=== PATIENT | male | born 1935 | race Caucasian/White ===

== ENCOUNTER 2018-03-04 21:20 | Observation (INO) | payer OTHER ==
[2018-03-04] MEDS ORDERED: METOPROLOL TAR 50 MG TAB ONE (21:52)
[2018-03-04] MEDS ORDERED: ASPIRIN 81 MG CHEWABLE TABLET ONE (21:52)
[2018-03-04] MEDS ORDERED: METOPROLOL TARTRATE 5 MG/5 ML INJ IV ONE ×3 (21:52→22:09)
[2018-03-04] MEDS ORDERED: NA CHLORIDE 0.9% 1,000 ML ONE (21:53)
[2018-03-04] MEDS ORDERED: ENOXAPARIN 80 MG/0.8 ML SQ ONE (21:53)
[2018-03-04] MEDS ORDERED: DIGOXIN 0.25 MG TABLET ONE (22:01)
[2018-03-04] MEDS ORDERED: FAMOTIDINE 20 MG/2 ML VIAL IV ONE (22:02)
[2018-03-04 22:07] LABS: Absolute Lymphocytes (CBC) 1.9 K/uL (0.7-4.9); Absolute Monocytes 0.7 K/uL (0.1-1.3); Absolute Neutrophil 4.6 K/uL (1.8-8.0); Basophils % 0.6 % (0-1.3); Hematocrit 43.9 % (39.6-49.0); MCV 96.3 fL (80-100); MPV 8.6 fL (7.6-11.3); Monocytes % 10.1 % (3.3-12.3); Potassium 4.1 mEq/L (3.6-5.0); RBC Red Blood Cell Count 4.56 M/uL (4.33-5.43)
[2018-03-04] MEDS ORDERED: DIGOXIN 0.25 MG/ML AMP ONE (22:08)
[2018-03-04 22:20] LABS: CKMB Creatine Kinase MB 2.2 ng/ml (0.3-4.0)
--- NOTE | 2018-03-04 22:42 | ER ---
Nurse's Notes [facility] Name: Adarsh Frederick Age: 82 yrs Sex: Male : 1935 Arrival Date: 03/04/2018 Time: 21:21 Bed 3 Private MD: Diagnosis: Atrial fibrillation and flutter;Other chest pain;Type 2 diabetes mellitus Presentation: 03/04 21:25 Presenting complaint: Patient states: that he started to have chest pain at approx 1930 fc along with shortness of breath. Pain radiates to left arm and left jaw. Denies any nausea or vomiting. Transition of care: patient was not received from another setting of care. Onset of symptoms was March 04, 2018 at 19:30. Care prior to arrival: Medication(s) given: Nitroglycerin, 0.4 mg SL x 1. 21:25 Method Of Arrival: Wheelchair 21:25 Acuity: MELLO 2 fc Historical: - Allergies: :56 No Known Allergies; fc - Home Meds: 21:56 aspirin 325 mg Oral tab 1 tab once daily [Active]; glipizide 5 mg Oral tr24 1 tab twice fc a day [Active]; donepezil 10 mg oral tab .5 tab once daily [Active]; atenolol 25 mg Oral tab 1 tab once daily [Active]; sertraline 25 mg oral tab 1 tab once daily [Active]; clopidogrel 75 mg oral tab 1 tab once daily [Active]; Co Q-10 oral oral daily [Active]; primidone 50 mg Oral tab nightly [Active]; clonazepam 0.5 mg Oral tab 1 tab as needed [Active]; tramadol 50 mg Oral tab 1 tab twice a day [Active]; atorvastatin 40 mg oral tab 1 tab nightly [Active]; omeprazole 40 mg Oral cpDR 1 cap nightly [Active]; - PMHx: 21:56 Myocardial infarction; CAD; Diabetes - NIDDM; High Cholesterol; Dementia; Depression; fc - PSHx: 21:56 CABG; Heart stents; Hernia repair; fc - Immunization history:: Last tetanus immunization: unknown. - Social history:: Smoking status: Patient/guardian denies using tobacco, the patient reports quitting approximately 20 years ago. - Family history:: not pertinent. Screenin:25 Abuse screen: Denies threats or abuse. Nutritional screening: No deficits noted. fc Tuberculosis screening: No symptoms or risk factors identified. Fall Risk None identified. Assessment: 21:30 General: Appears uncomfortable, Behavior is calm, cooperative, appropriate for age. bp Pain: Complains of pain in mid chest Pain does not radiate. Pain currently is 7 out of 10 on a pain scale. Quality of pain is described as aching, Pain began gradually. Neuro: Level of Consciousness is awake, alert, obeys commands, Oriented to person, place, time, hx of dementia. Speech is normal, Facial symmetry appears normal, Pupils are PERRLA, Intact. Cardiovascular: Reports chest pain, palpitations, Denies nausea, palpitations, shortness of breath, syncope, Heart tones S1 S2 present Capillary refill < 3 seconds Patient's skin is warm and dry. Pulses are all present. Rhythm is w/ RVR. Respiratory: Airway is patent Trachea midline Respiratory effort is even, unlabored, Respiratory pattern is regular, symmetrical, Breath sounds are clear bilaterally. GI: No deficits noted. No signs and/or symptoms were reported involving the gastrointestinal system. : No deficits noted. No signs and/or symptoms were reported regarding the genitourinary system. EENT: No deficits noted. No signs and/or symptoms were reported regarding the EENT system. Derm: No deficits noted. No signs and/or symptoms reported regarding the dermatologic system. Musculoskeletal: Circulation, motion, and sensation intact. Capillary refill < 3 seconds, Range of motion: intact in all extremities. 22:30 Reassessment: Patient appears in no apparent distress at this time. Patient and/or bp family updated on plan of care and expected duration. Pain level reassessed. Patient is alert, oriented x 3, equal unlabored respirations, skin warm/dry/pink. Patient states symptoms have improved. 23:30 Reassessment: Patient appears in no apparent distress at this time. No changes from bp previously documented assessment. Patient and/or family updated on plan of care and expected duration. Pain level reassessed. Patient is alert, oriented x 3, equal unlabored respirations, skin warm/dry/pink. 03/05 00:30 Reassessment: Patient appears in no apparent distress at this time. No changes from bp previously documented assessment. Patient and/or family updated on plan of care and expected duration. Pain level reassessed. Patient is alert, oriented x 3, equal unlabored respirations, skin warm/dry/pink. Patient alert and oriented to person, place, situation, does have some intermittent confusion due to hx of dementia. No chest pain noted at this time. No signs of resp distress. Patient now in sinus rhythm, another EKG done. Vital Signs: 03/04 21:25 BP 152 / 87; Pulse 106; Resp 20; Temp 98.(O); Pulse Ox 98% on R/A; Weight 70.76 kg (R); fc Height 5 ft. 11 in. (180.34 cm) (R); Pain 3/10; 21:45 BP 140 / 89; Pulse 112; Resp 18; Pulse Ox 97% on R/A; Pain 0/10; bp 21:56 BP 132 / 92; Resp 18; Pulse Ox 97% on R/A; Pain 0/10; bp 22:00 BP 111 / 94; Pulse 104; Resp 18; Pulse Ox 97% on R/A; Pain 0/10; bp 22:09 BP 124 / 91; Pulse 95; Resp 18; Pulse Ox 96% ; Pain 0/10; bp 22:15 BP 145 / 128; Pulse 118; Resp 18; Pulse Ox 96% on R/A; bp 22:30 BP 152 / 92; Pulse 80; Resp 17; Pulse Ox 97% on R/A; Pain 0/10; bp 22:45 BP 143 / 88; Pulse 83; Resp 18; Pulse Ox 96% on R/A; bp 23:00 BP 143 / 97; Pulse 78; Pulse Ox 100% on R/A; bp 23:15 BP 154 / 95; Pulse 80; Pulse Ox 100% on R/A; bp 23:30 BP 153 / 92; Pulse 79; Pulse Ox 96% on R/A; bp 23:45 BP 151 / 95; Pulse 78; Pulse Ox 97% on R/A; bp 0412 00:00 BP 150 / 90; Pulse 77; Pulse Ox 98% on R/A; bp 00:15 BP 162 / 95; Pulse 76; Pulse Ox 98% on R/A; bp 03/04 21:25 Body Mass Index 21.76 (70.76 kg, 180.34 cm) ED Course: 03/04 21:21 Patient arrived in ED. as 21:25 Arm band placed on Patient placed in an exam room, on a stretcher, on teletypesetter monitor, fc on pulse oximetry. 21:25 Patient has correct armband on for positive identification. Placed in gown. Bed in low fc position. Call light in reach. quality assurance monitor body on. Pulse ox on. NIBP on. 21:25 No provider procedures requiring assistance completed. Patient maintains SpO2 fc saturation greater than 95% on room air. 21:29 Kenan Fernandes, RN is Primary Nurse. bp 21:38 Triage completed. fc 21:38 Soy Winchester MD is Attending Physician. clary 21:56 X-ray completed. Portable x-ray completed in exam room. Patient tolerated procedure ml well. 21:57 XRAY Chest (1 view) In Process Unspecified. EDMS 22:40 Sergo Gray MD is Hospitalizing Provider. clary 03/05 00:45 Patient admitted, IV remains in place. intact. bs1 Administered Medications: Discontinued: NS 0.9% 1000 ml IV at 125 ml/hr continuous 03/04 21:54 Drug: Aspirin 162 mg Route: PO; bs1 03/05 00:51 Follow up: Response: No adverse reaction [facility] 03/04 21:54 Drug: Lopressor 5 mg Route: IVP; Site: left antecubital; bs1 21:54 Drug: Lopressor (metoprolol TARTRATE) 50 mg Route: PO; bs 03/05 00:50 Follow up: Response: No adverse reaction [facility] 03/04 21:55 Drug: NS 0.9% 1000 ml Route: IV; Rate: 125 ml/hr; Site: left antecubital; bs1 03/05 00:52 Follow up: IV Status: Order to discontinue infusion; IV Intake: 450ml bs1 00:54 Follow up: IV Status: Infusion continued upon admission [facility] 03/04 21:58 Drug: Lovenox 1 mg/kg Route: Sub-Q; Site: left lower abdomen; bs 03/05 00:51 Follow up: Response: No adverse reaction [facility] 03/04 22:02 Drug: Lopressor 5 mg Route: IVP; Site: left antecubital; bs1 22:02 Drug: Pepcid 20 mg Route: IVP; Site: left antecubital; bs 03/05 00:48 Follow up: Response: No adverse reaction [facility] 03/04 22:03 Drug: Digoxin 0.5 mg Route: IVP; Site: left antecubital; bs1 03/05 00:48 Follow up: Response: No adverse reaction bs1 03/04 22:10 Drug: Lopressor 5 mg Route: IVP; Site: left antecubital; bs1 03/05 00:50 Follow up: Response: No adverse reaction bs1 Intake: 00:52 IV: 450ml; Total: 450ml. bs1 Outcome: 03/04 22:40 Decision to Hospitalize by Provider. [facility] 03/05 00:45 Instructed on the need for admit. bs1 00:45 Admitted to Tele accompanied by tech, via wheelchair, room 419, with chart, Report bs1 called to DAVID Downs, powerhouse mechanic supervisor Shawna Called powerhouse mechanic supervisor to give report 00:47 Condition: stable bp 01:35 Patient left the ED. bs1 Signatures: Dispatcher [employer] EDSoy Kunz MD MD cha Chretien, Felicia, RN RN Brandi Jean Melissa ml Peltier, Brian, RN RN bp Salazar, Brittany, RN RN bs1
--- NOTE | 2018-03-04 22:42 | EDPHYS ---
Physician Documentation [facility] Name: Adarsh Frederick Age: 82 yrs Sex: Male : 1935 Arrival Date: 03/04/2018 Time: 21:21 Bed 3 Private MD: ED Physician Soy Winchester HPI: 03/04 21:52 This 82 yrs old Male presents to ER via Wheelchair with complaints of Chest clary Pain. 21:52 The patient or guardian reports chest pain that is located primarily in the substernal clary area, anterior chest wall. Onset: just prior to arrival. The pain does not radiate. Associated signs and symptoms: Pertinent positives: dizziness, lightheadedness. The chest pain is described as a heaviness. Modifying factors: The symptoms are alleviated by nothing. the symptoms are aggravated by nothing. Severity of pain: At its worst the pain was mild in the emergency department the pain is unchanged. The patient has not experienced similar symptoms in the past. Historical: - Allergies: 21:56 No Known Allergies; fc - Home Meds: 21:56 aspirin 325 mg Oral tab 1 tab once daily [Active]; glipizide 5 mg Oral tr24 1 tab twice fc a day [Active]; donepezil 10 mg oral tab .5 tab once daily [Active]; atenolol 25 mg Oral tab 1 tab once daily [Active]; sertraline 25 mg oral tab 1 tab once daily [Active]; clopidogrel 75 mg oral tab 1 tab once daily [Active]; Co Q-10 oral oral daily [Active]; primidone 50 mg Oral tab nightly [Active]; clonazepam 0.5 mg Oral tab 1 tab as needed [Active]; tramadol 50 mg Oral tab 1 tab twice a day [Active]; atorvastatin 40 mg oral tab 1 tab nightly [Active]; omeprazole 40 mg Oral cpDR 1 cap nightly [Active]; - PMHx: 21:56 Myocardial infarction; CAD; Diabetes - NIDDM; High Cholesterol; Dementia; Depression; fc - PSHx: 21:56 CABG; Heart stents; Hernia repair; fc - Immunization history:: Last tetanus immunization: unknown. - Social history:: Smoking status: Patient/guardian denies using tobacco, the patient reports quitting approximately 20 years ago. - Family history:: not pertinent. ROS: 21:52 Constitutional: Negative for fever, chills, and weight loss, Eyes: Negative for injury, clary pain, redness, and discharge, ENT: Negative for injury, pain, and discharge, Neck: Negative for injury, pain, and swelling, Respiratory: Negative for shortness of breath, cough, wheezing, and pleuritic chest pain, Abdomen/GI: Negative for abdominal pain, nausea, vomiting, diarrhea, and constipation, Back: Negative for injury and pain, : Negative for injury, bleeding, discharge, and swelling, MS/Extremity: Negative for injury and deformity, Skin: Negative for injury, rash, and discoloration, Neuro: Negative for headache, weakness, numbness, tingling, and seizure. 21:52 Cardiovascular: Positive for chest pain. Exam: 21:52 Constitutional: This is a well developed, well nourished patient who is awake, alert, clary and in no acute distress. Head/Face: Normocephalic, atraumatic. Eyes: Pupils equal round and reactive to light, extra-ocular motions intact. Lids and lashes normal. Conjunctiva and sclera are non-icteric and not injected. Cornea within normal limits. Periorbital areas with no swelling, redness, or edema. ENT: Nares patent. No nasal discharge, no septal abnormalities noted. Tympanic membranes are normal and external auditory canals are clear. Oropharynx with no redness, swelling, or masses, exudates, or evidence of obstruction, uvula midline. Mucous membranes moist. Neck: Trachea midline, no thyromegaly or masses palpated, and no cervical lymphadenopathy. Supple, full range of motion without nuchal rigidity, or vertebral point tenderness. No Meningismus. Chest/axilla: Normal chest wall appearance and motion. Nontender with no deformity. No lesions are appreciated. Respiratory: Lungs have equal breath sounds bilaterally, clear to auscultation and percussion. No rales, rhonchi or wheezes noted. No increased work of breathing, no retractions or nasal flaring. Abdomen/GI: Soft, non-tender, with normal bowel sounds. No distension or tympany. No guarding or rebound. No evidence of tenderness throughout. Back: No spinal tenderness. No costovertebral tenderness. Full range of motion. Male : Normal genitalia with no discharge or lesions. Skin: Warm, dry with normal turgor. Normal color with no rashes, no lesions, and no evidence of cellulitis. MS/ Extremity: Pulses equal, no cyanosis. Neurovascular intact. Full, normal range of motion. Neuro: Awake and alert, GCS 15, oriented to person, place, time, and situation. Cranial nerves II-XII grossly intact. Motor strength 5/5 in all extremities. Sensory grossly intact. Cerebellar exam normal. Normal gait. Psych: Awake, alert, with orientation to person, place and time. Behavior, mood, and affect are within normal limits. 21:52 Cardiovascular: Rate: tachycardic, Rhythm: irregularly irregular, Pulses: Pulses are 4+ in bilateral radial, brachial, femoral, popliteal, posterior tibial and and dorsalis pedis arteries.. Heart sounds: normal, Edema: is not appreciated, JVD: is not appreciated. Vital Signs: 21:25 BP 152 / 87; Pulse 106; Resp 20; Temp 98.(O); Pulse Ox 98% on R/A; Weight 70.76 kg (R); fc Height 5 ft. 11 in. (180.34 cm) (R); Pain 3/10; 21:45 BP 140 / 89; Pulse 112; Resp 18; Pulse Ox 97% on R/A; Pain 0/10; bp 21:56 BP 132 / 92; Resp 18; Pulse Ox 97% on R/A; Pain 0/10; bp 22:00 BP 111 / 94; Pulse 104; Resp 18; Pulse Ox 97% on R/A; Pain 0/10; bp 22:09 BP 124 / 91; Pulse 95; Resp 18; Pulse Ox 96% ; Pain 0/10; bp 22:15 BP 145 / 128; Pulse 118; Resp 18; Pulse Ox 96% on R/A; bp 22:30 BP 152 / 92; Pulse 80; Resp 17; Pulse Ox 97% on R/A; Pain 0/10; bp 22:45 BP 143 / 88; Pulse 83; Resp 18; Pulse Ox 96% on R/A; bp 23:00 BP 143 / 97; Pulse 78; Pulse Ox 100% on R/A; bp 23:15 BP 154 / 95; Pulse 80; Pulse Ox 100% on R/A; bp 23:30 BP 153 / 92; Pulse 79; Pulse Ox 96% on R/A; bp 23:45 BP 151 / 95; Pulse 78; Pulse Ox 97% on R/A; bp 03/05 00:00 BP 150 / 90; Pulse 77; Pulse Ox 98% on R/A; bp 00:15 BP 162 / 95; Pulse 76; Pulse Ox 98% on R/A; bp 03/04 21:25 Body Mass Index 21.76 (70.76 kg, 180.34 cm) fc MDM: 03/04 21:38 Patient medically screened. [facility] 21:52 Data reviewed: vital signs, nurses notes, lab test result(s), EKG, radiologic studies, clary plain films. 03/04 21:40 Order name: Basic Metabolic Panel [facility] 03/04 21:40 Order name: BNP; Complete Time: 22:38 [facility] 03/04 21:40 Order name: CBC with Diff [facility] 03/04 21:40 Order name: Ckmb [facility] 03/04 21:40 Order name: CPK [facility] 03/04 21:40 Order name: LFT's [facility] 03/04 21:40 Order name: Magnesium [facility] 03/04 21:40 Order name: PT-INR [facility] 03/04 21:40 Order name: Ptt, Activated [facility] 03/04 21:40 Order name: Troponin (emerg Dept Use Only); Complete Time: 22:38 [facility] 03/04 21:40 Order name: Lipase [facility] 03/04 21:40 Order name: TSH [facility] 03/04 21:40 Order name: Urine Culture [facility] 03/04 23:08 Order name: Troponin I [facility] 03/04 21:40 Order name: XRAY Chest (1 view) [facility] 03/04 21:40 Order name: EKG; Complete Time: 21:41 [facility] 03/04 21:40 Order name: Cardiac monitoring; Complete Time: 21:46 [facility] 03/04 21:40 Order name: EKG - Nurse/Tech; Complete Time: 21:46 [facility] 03/04 22:44 Order name: CONS Physician Consult [facility] 03/04 22:44 Order name: Echo with Doppler [facility] 03/04 23:08 Order name: Heart Healthy [facility] 03/04 23:08 Order name: Troponin I [facility] 03/04 23:08 Order name: Troponin I [facility] 03/04 21:40 Order name: IV Saline Lock; Complete Time: 21:46 [facility] 03/04 21:40 Order name: Labs collected and sent; Complete Time: 21:46 [facility] 03/04 21:40 Order name: O2 Per Protocol; Complete Time: 21:46 [facility] 03/04 21:40 Order name: O2 Sat Monitoring; Complete Time: 21:46 [facility] 03/04 21:40 Order name: Urine Dipstick-Ancillary (obtain specimen); Complete Time: 00:52 [facility] Administered Medications: Discontinued: NS 0.9% 1000 ml IV at 125 ml/hr continuous 21:54 Drug: Aspirin 162 mg Route: PO; bs1 03/05 00:51 Follow up: Response: No adverse reaction bs1 03/04 21:54 Drug: Lopressor 5 mg Route: IVP; Site: left antecubital; bs1 21:54 Drug: Lopressor (metoprolol TARTRATE) 50 mg Route: PO; bs1 03/05 00:50 Follow up: Response: No adverse reaction [facility] 03/04 21:55 Drug: NS 0.9% 1000 ml Route: IV; Rate: 125 ml/hr; Site: left antecubital; bs1 03/05 00:52 Follow up: IV Status: Order to discontinue infusion; IV Intake: 450ml bs1 00:54 Follow up: IV Status: Infusion continued upon admission bs1 03/04 21:58 Drug: Lovenox 1 mg/kg Route: Sub-Q; Site: left lower abdomen; bs1 03/05 00:51 Follow up: Response: No adverse reaction 1 03/04 22:02 Drug: Lopressor 5 mg Route: IVP; Site: left antecubital; bs1 22:02 Drug: Pepcid 20 mg Route: IVP; Site: left antecubital; bs1 03/05 00:48 Follow up: Response: No adverse reaction 1 03/04 22:03 Drug: Digoxin 0.5 mg Route: IVP; Site: left antecubital; bs1 03/05 00:48 Follow up: Response: No adverse reaction [facility] 03/04 22:10 Drug: Lopressor 5 mg Route: IVP; Site: left antecubital; bs1 03/05 00:50 Follow up: Response: No adverse reaction [facility] Disposition: 03/04/18 22:40 Hospitalization ordered by Sergo Gray for Observation. Preliminary diagnosis are Atrial fibrillation and flutter, Other chest pain, Type 2 diabetes mellitus. - Bed requested for Telemetry/MedSurg (observation). - Status is Observation. bs1 - Condition is Stable. - Problem is new. - Symptoms have improved. UTI on Admission? No Signatures: Dispatcher [employer] EDMS Shawna Freedman RN RN Soy Moore MD MD cha Chretien, Felicia, RN RN Sheryl Cuevas RN RN bs1
[2018-03-04 22:44] LABS: Protime INR 0.91
[2018-03-04 22:52] LABS: Thyroid Stimulating Hormone 3.86 uIU/mL (0.34-5.60)
[2018-03-04 22:59] LABS: Albumin 3.6 g/dL (3.2-5.5); Bilirubin Direct 0.3 mg/dL (0-0.2); Bilirubin Total 0.7 mg/dL (0.3-1.2); Magnesium 1.9 mg/dL (1.8-2.5); Protein, Total 6.7 g/dL (6.0-8.3)
[2018-03-04 23:03] LABS: MCH 32.9 pg (27.0-35.0)
[2018-03-04] MEDS ORDERED: METOPROLOL TARTRATE 5 MG/5 ML INJ IV PRN (23:06)
[2018-03-04] MEDS ORDERED: ACETAMINOPHEN 500 MG TAB PO PRN (23:06)
[2018-03-04] MEDS ORDERED: ALPRAZOLAM 0.25 MG TABLET PO PRN (23:06)
[2018-03-05 02:10] VITALS: O2SAT 98
[2018-03-05 02:18] VITALS: BMI 20.8
[2018-03-05] MEDS ORDERED: clonazePAM 0.5 MG TAB PO PRN (06:56)
[2018-03-05] MEDS ORDERED: TRAMADOL HCL 50 MG TAB PO PRN (06:56)
--- NOTE | 2018-03-05 07:01 | EKG ---
Test Date: 2018-03-04 Test Time: 21:34:19 Educational Advisor: LAURIE MEASUREMENT RESULTS: Intervals: Rate: 153 [place]: QRSD: 86 QT: 314 QTc: 501 [place]: P: FL: QRS: 43 T: 113 INTERPRETIVE STATEMENTS: Atrial fibrillation with rapid ventricular response Possible Inferior infarct, age undetermined ST & T wave abnormality, consider lateral ischemia Abnormal ECG No previous ECG available for comparison Electronically Signed On 03-05-18 07:01:26 CDT by Min Flores
--- NOTE | 2018-03-05 07:06 | P.HP ---
Certification for Inpatient Patient admitted to: Observation With expected LOS: <2 Midnights Patient will require the following post-hospital care: None Practitioner: I am a practitioner with admitting privileges, knowledge of patient current condition, hospital course, and medical plan of care. Services: Services provided to patient in accordance with Admission requirements found in Title 42 Section 412.3 of the Code of Federal Regulations Patient History Date of Service: 03/04/18 Reason for admission: Chest pain rule out acute coronary syndrome History of Present Illness: Patient is an 82-year-old who is admitted to the hospital with chest pain. Patient has a history of CAD. Patient follows with a stock raiser from [place]. Patient has had recent workup with no significant abnormalities. Patient has been having chest pain which is worsened with exertion. However, his chest pain has resolved. Patient will be admitted to the hospital for observation to be ruled out for acute coronary syndrome and for further evaluation. Allergies No Known Allergies Allergy (Verified 03/05/18 01:35) Home Medications: Aspirin 325 mg PO DAILY 03/05/18 Atenolol [Tenormin] 25 mg PO DAILY 03/05/18 Atorvastatin Calcium [Lipitor] 40 mg PO BEDTIME 03/05/18 Clonazepam 0.5 mg PO PRN PRN 03/05/18 Clopidogrel Bisulfate [Plavix*] 75 mg PO DAILY 03/05/18 Donepezil [Aricept*] 5 mg PO DAILY 03/05/18 Glipizide [Glucotrol] 5 mg PO BID 03/05/18 Omeprazole 20 mg PO DAILY 03/05/18 Primidone [Mysoline] 50 mg PO DAILY 03/05/18 Sertraline [Zoloft*] 25 mg PO DAILY 03/05/18 Tamsulosin [Flomax*] 0.4 mg PO DAILY 03/05/18 Tramadol HCl [Ultram] 50 mg PO BID PRN 03/05/18 Ubidecarenone [Co Q-10] 10 mg PO DAILY 03/05/18 - Past Medical/Surgical History Has patient received pneumonia vaccine in the past: Yes Diabetic: Yes -: DM -: High Cholesterol -: RI -: CAD -: Dementia -: Depression -: CABG -: Heart stents -: Hernia repair - Family History Father Medical History: Heart disease Mother Medical History: Hypertension, Diabetes - Social History Smoking Status: Former smoker Alcohol use: Yes CD- Drugs: No Caffeine use: Yes Place of Residence: Home Review of Systems 10-point ROS is otherwise unremarkable Physical Examination - Vital Signs Temperature: 98.3 F Blood Pressure: 140/88 Pulse: 123 Respirations: 16 Pulse Ox (%): 97 - Physical Exam General: Alert, In no apparent distress, Oriented x3 HEENT: Atraumatic, PERRLA, Mucous membr. moist/pink, EOMI, Sclerae nonicteric Neck: Supple, 2+ carotid pulse no bruit, No LAD, Without JVD or thyroid abnormality Respiratory: Clear to auscultation bilaterally, Normal air movement Cardiovascular: Regular rate/rhythm, Normal S1 S2, No murmurs Gastrointestinal: Normal bowel sounds, Soft and benign, Non-distended, No tenderness, No rebound, No guarding Musculoskeletal: No clubbing, No swelling, No tenderness Integumentary: No rashes Neurological: Normal gait, Normal speech, Normal strength at 5/5 x4 extr, Normal tone, Sensation intact, Cranial nerves 3-12 intact, Normal affect Lymphatics: No axilla or inguinal lymphadenopathy - Studies Laboratory Data (last 24 hrs) 03/04/18 21:40: PT 10.7, INR 0.91, APTT 26.3 03/04/18 21:40: WBC 7.3, Hgb 15.0, Hct 43.9, Plt Count 164 03/04/18 21:40: B-Natriuretic Peptide 86 03/04/18 21:40: Sodium 137, Potassium 4.1, BUN 23 H, Creatinine 1.58 H, Glucose 193 H, Magnesium 1.9, Total Bilirubin 0.7, AST 34, ALT 16, Alkaline Phosphatase 47, Lipase 50 Assessment & Plan - Problems (Diagnosis) (1) Chest pain, rule out acute myocardial infarction Current Visit: Yes Status: Acute (2) CAD (coronary artery disease) Current Visit: Yes Status: Acute (3) HTN (hypertension) Current Visit: Yes Status: Acute (4) DM type 2 (diabetes mellitus, type 2) Current Visit: Yes Status: Acute (5) Depression Current Visit: Yes Status: Acute (6) Alzheimer's dementia Current Visit: Yes Status: Acute - Plan 1. Serial troponins and EKG 2. Cardiology consultation 3. Echocardiogram and further intervention as recommended by Cardiology 4. Anti-platelet therapy, anti coagulation, beta-josephine, statin, and O2 as needed 5. IV morphine for pain 6. Nitro p.r.n. Discharge Plan: Home Plan to discharge in: 24 Hours - Advance Directives Does patient have a Living Will: No Does patient have a Durable POA for Healthcare: No - Code Status/Comfort Care Code Status Assessed: Yes Code Status: Full Code Critical Care: No Time Spent Managing PTS Care (In Minutes): 50
--- NOTE | 2018-03-05 08:08 | RAD REPORT ---
EXAM DESCRIPTION: Jhonathan Single View03/04/2018 9:58 pm CLINICAL HISTORY: Chest pain COMPARISON: none FINDINGS: Mild bilateral interstitial lung opacities are suspected. The heart is enlarged. Post surg ical chain IMPRESSION: Mild bilateral interstitial lung opacities may represent atypical pneumonia, pneumonitis or interstitial pulmonary edema
[2018-03-05] MEDS: PRIMIDONE 50 MG TAB PO SCH ×3 (08:41→09:29)
[2018-03-05] MEDS ORDERED: SERTRALINE HCL 50 MG TAB PO SCH (09:00)
[2018-03-05] MEDS ORDERED: TAMSULOSIN 0.4 MG SR CAP PO SCH (09:00)
[2018-03-05] MEDS ORDERED: CLOPIDOGREL 75 MG TABLET PO SCH (09:00)
[2018-03-05] MEDS ORDERED: METOPROLOL TAR 50 MG TAB PO SCH (09:00)
[2018-03-05] MEDS ORDERED: DONEPEZIL HCL 5 MG TAB PO SCH (09:00)
[2018-03-05] MEDS ORDERED: glipiZIDE 5 MG TAB PO SCH (09:00)
[2018-03-05] MEDS ORDERED: ASPIRIN 325 MG TAB PO SCH (09:00)
[2018-03-05] MEDS ORDERED: UBIDECARENONE 10 MG PO SCH (09:00)
[2018-03-05] MEDS ORDERED: ASPIRIN EC 81 MG TAB PO SCH (09:00)
[2018-03-05 11:27] VITALS: BP 140/72; TEMP 97.4
--- NOTE | 2018-03-05 12:10 | ECHO ---
HEIGHT: 5 ft 11 in WEIGHT: 149 lb 8 oz DATE OF STUDY: 03/05/[address]: Soy Winchester MD 2-DIMENSIONAL: YES M.MODE: YES DOPPLER: YES COLOR FLOW: YES TDS: PORTABLE: DEFINITY: BUBBLE STUDY: DIAGNOSIS: CHEST PAIN CARDIAC HISTORY: CATHERIZATION: YES SURGERY: CABG PROSTHETIC VALVE: NO PACEMAKER: NO MEASUREMENTS (cm) DIASTOLIC (NORMALS) SYSTOLIC (NORMALS) IVSd 1.0 (0.6-1.2) LA Diam 3.9 (1.9-4.0) LVEF 51% LVIDd 4.7 (3.5-5.7) LVIDs 3.5 (2.0-3.5) %FS 26% LVPWd 0.9 (0.6-1.2) Ao Diam 3.4 (2.0-3.7) 2 DIMENSIONAL ASSESSMENT: RIGHT ATRIUM: NORMAL LEFT ATRIUM: DILATED RIGHT VENTRICLE: NORMAL LEFT VENTRICLE: NORMAL TRICUSPID VALVE: NORMAL MITRAL VALVE: NORMAL PULMONIC VALVE: NORMAL AORTIC VALVE: MILD SCLEROSIS PERICARDIAL EFFUSION: NONE AORTIC ROOT: NORMAL LEFT VENTRICULAR WALL MOTION: NORMAL DOPPLER/COLOR FLOW: MILD MITRAL AND TRICUSPID REGURGITATION. NORMAL RIGHT VENTRICULAR SYSTOLIC PRSESURE. COMMENTS: NORMAL LEFT VENTRICULAR EJECTION FRACTION (LOWER LIMIT OF NORMAL). DILATED LEFT ATRIUM. MILD MITRAL AND TRICUSPID REGURGITATION. AORTIC SCLEROSIS WITH NO AORTIC STENOSIS OR AORTIC REGURGITATION. TECHNOLOGIST: MARK ANTHONY HAIRSTON
--- NOTE | 2018-03-05 15:31 | EKG ---
Test Date: 2018-03-04 Test Time: 23:37:12 Presentation Team Member: CLAUDIA MEASUREMENT RESULTS: Intervals: Rate: 77 TX: 180 QRSD: 92 QT: 388 QTc: 439 [place]: P: 65 TX: 180 QRS: 48 T: 21 INTERPRETIVE STATEMENTS: Normal sinus rhythm T wave abnormality, consider inferior ischemia Abnormal ECG Compared to ECG 03/04/2018 21:34:19 T-wave abnormality now present Atrial fibrillation no longer present Myocardial infarct finding no longer present ST (T wave) deviation no longer present Possible ischemia still present Electronically Signed On 03-05-18 15:29:01 CDT by Wilfred Schroeder
--- NOTE | 2018-03-05 15:31 | EKG ---
Test Date: 2018-03-05 Test Time: 08:50:10 Credentials Specialist: SHELBY MEASUREMENT RESULTS: Intervals: Rate: 71 [place]: 166 QRSD: 92 QT: 396 QTc: 430 [place]: P: 66 [place]: 166 QRS: 71 T: -46 INTERPRETIVE STATEMENTS: Normal sinus rhythm with sinus arrhythmia Possible Inferior infarct, age undetermined T wave abnormality, consider anterolateral ischemia Abnormal ECG Compared to ECG 03/04/2018 23:37:12 Myocardial infarct finding now present T-wave abnormality still present Possible ischemia still present Electronically Signed On 03-05-18 15:28:58 CDT by Wilfred Schroeder
--- NOTE | 2018-03-05 16:28 | P.SSS ---
Patient History Date of Service: 03/05/18 Primary Care Provider: None Reason for admission: Chest pain rule out acute coronary syndrome History of Present Illness: Patient is an 82-year-old who is admitted to the hospital with chest pain. Patient has a history of CAD. Patient follows with a barrel charrer from [place]. Patient has had recent workup with no significant abnormalities. Patient has been having chest pain which is worsened with exertion. However, his chest pain has resolved. Patient will be admitted to the hospital for observation to be ruled out for acute coronary syndrome and for further evaluation. Allergies No Known Allergies Allergy (Verified 03/05/18 01:35) Home Medications: Aspirin 325 mg PO DAILY 03/05/18 Atenolol 50 mg PO DAILY #30 tablet 03/05/18 Atorvastatin Calcium [Lipitor] 40 mg PO BEDTIME 03/05/18 Clonazepam 0.5 mg PO PRN PRN 03/05/18 Clopidogrel Bisulfate [Plavix*] 75 mg PO DAILY 03/05/18 Donepezil [Aricept*] 5 mg PO DAILY 03/05/18 Glipizide [Glucotrol*] 5 mg PO BID 03/05/18 Omeprazole 20 mg PO DAILY 03/05/18 Primidone [Mysoline *] 50 mg PO DAILY 03/05/18 Sertraline [Zoloft*] 25 mg PO DAILY 03/05/18 Tamsulosin [Flomax*] 0.4 mg PO DAILY 03/05/18 Tramadol HCl [Ultram] 50 mg PO BID PRN 03/05/18 Ubidecarenone [Co Q-10] 10 mg PO DAILY 03/05/18 - Past Medical/Surgical History Has patient received pneumonia vaccine in the past: Yes Diabetic: Yes -: DM -: High Cholesterol -: OR -: CAD -: Dementia -: Depression -: CABG -: Heart stents -: Hernia repair - Family History Father -: Heart disease Mother -: Hypertension, Diabetes - Social History Smoking Status: Former smoker Alcohol use: Yes CD- Drugs: No Caffeine use: Yes Place of Residence: Home Review of Systems 10-point ROS is otherwise unremarkable Physical Examination - Vital Signs Temperature: 97.4 F Blood Pressure: 140/72 Pulse: 68 Respirations: 18 Pulse Ox (%): 99 - Physical Exam General: Alert, In no apparent distress HEENT: Atraumatic, PERRLA, Mucous membr. moist/pink, EOMI, Sclerae nonicteric Neck: Supple, 2+ carotid pulse no bruit, No LAD, Without JVD or thyroid abnormality Respiratory: Clear to auscultation bilaterally, Normal air movement Cardiovascular: Regular rate/rhythm, Normal S1 S2 Gastrointestinal: Normal bowel sounds, No tenderness Musculoskeletal: No tenderness Integumentary: No rashes Neurological: Normal gait, Normal speech, Normal strength at 5/5 x4 extr, Normal tone, Normal affect Lymphatics: No axilla or inguinal lymphadenopathy - Studies Laboratory Data (last 24 hrs) 03/04/18 21:40: PT 10.7, INR 0.91, APTT 26.3 03/04/18 21:40: WBC 7.3, Hgb 15.0, Hct 43.9, Plt Count 164 03/04/18 21:40: B-Natriuretic Peptide 86 03/04/18 21:40: Sodium 137, Potassium 4.1, BUN 23 H, Creatinine 1.58 H, Glucose 193 H, Magnesium 1.9, Total Bilirubin 0.7, AST 34, ALT 16, Alkaline Phosphatase 47, Lipase 50 - Diagnosis (Problem(s)) (1) Chest pain, rule out acute myocardial infarction Onset Date: 03/05/18 Status: Ruled-out Plan: Chest Pain with Negative troponin and WNL EKG. -Cardiology consulted. [facility] ECHO Cardiogram -ECHO was negative. -No further workup needed. -Pt discharged home - With increased dose of atenolol and asked to F/u with [facility] in [place]. (2) CAD (coronary artery disease) Onset Date: 03/05/18 Status: Chronic Qualifiers: Coronary Disease-Associated Artery/Lesion type: [place] artery [place] vs. transplanted heart: [place] heart Associated angina: without angina Qualified Code(s): I25.10 - Atherosclerotic heart disease of [place] coronary artery without angina pectoris (3) DM type 2 (diabetes mellitus, type 2) Onset Date: 03/05/18 Status: Chronic Qualifiers: Diabetes mellitus moth exterminator insulin use: with moth exterminator use Diabetes mellitus complication status: without complication Qualified Code(s): E11.9 - Type 2 diabetes mellitus without complications; Z79.4 - buttermaker (current) use of insulin; Z79.4 - retirement (current) use of insulin; Z79.4 - buttermaker ( current) use of insulin; Z79.4 - buttermaker (current) use of insulin (4) Depression Onset Date: 03/05/18 Status: Chronic Qualifiers: Depression Type: unspecified Qualified Code(s): F32.9 - Major depressive disorder, single episode, unspecified (5) HTN (hypertension) Onset Date: 03/05/18 Status: Chronic Qualifiers: Hypertension type: essential hypertension Qualified Code(s): I10 - Essential (primary) hypertension Treatment Summary: Chest Pain with Negative troponin and WNL EKG. -Cardiology consulted. [facility] ECHO Cardiogram -ECHO was negative. -No further workup needed. -Pt discharged home - With increased dose of atenolol and asked to F/u with [facility] in [place]. - Disposition Disposition: ROUTINE DISCHARGE Condition: GOOD Patient Discharge Instructions: Please f/u with Cardiology in [place] in 1 to 2 weeks post discharge. Change Medication. Atenolol 50mg daily. Please continue taking your medication as prescribed. Diet: Regular Activity: Ad mary
[2018-03-05] MEDS ORDERED: ATORVASTATIN 40 MG TAB PO SCH (21:00)
[2018-03-06] MEDS ORDERED: PANTOPRAZOLE 40MG TABLET PO SCH (06:30)
[2018-03-06] MEDS ORDERED: DONEPEZIL HCL 5 MG TAB PO SCH (21:00)
--- NOTE | 2018-03-07 12:12 | CON ---
Date of Consultation: 03/05/2018 The patient admitted on 03/04/[address] Gray's service. I saw the patient on 03/05/2018. Reason For Consultation: Atrial fibrillation and chest pain. History Of Present Illness: Mr. Frederick is an 82-year-old white male. He is visiting [facility]. He has primary care physician, Dr. Benji Egan in [place] close to [place]. He used to see Dr. Adarsh high for cardiology at [facility], but now he sees a cd reactor operator head in [place], but he does not r emember his name. He has a history of diabetes and coronary artery disease, status post CABG and PCI in the past. He has a history of depression, slight dementia. Never had atrial fibrillation before . Came in with palpitation and chest pain. Creatinine was 1.58. Troponin and BNPs were negative. He had a glucose of 193. His heart rate was 123 on admission. By the time I saw him, he was already in normal sinus rhythm and asymptomatic. Past Medical History: Otherwise negative. Allergies: NONE. Review of Systems: Negative. Social History: Negative. Family History: Noncontributory. Medications: At home include aspirin, atenolol, Zoloft, Flomax, Glucotrol, Lipitor, Plavix, Prilosec , and Mysoline. Physical Examination: General: He was in no acute distress. Sinus rhythm, asymptomatic. Vital Signs: Stable. He was afebrile. HEENT: Negative. Neck: Supple without any bruit, lymphadenopathy, JVD, or thyromegaly. Chest: Clear to auscultation and percussion. Cardiac: Revealed a regular rhythm and rate without any gallops or rubs or murmurs. Abdomen: Benign. Extremities: Revealed no clubbing, cyanosis, or edema. Diagnostic Data: As stated before earlier. Chest x-ray was negative. EKG revealed atrial fibrillat ion. Impression And Plan: Paroxysmal atrial fibrillation. I think we need to increase his atenolol and I will leave the decision regarding anticoagulation to his primary care physician and Dr. Gray, but I would suggest that he gets on Eliquis considering his renal insufficiency. Certainly, Coumadin will be another option. He will follow up with his cd reactor operator head in [place] and his primary care physic carlo. An echocardiogram is pending today. When Mr. Frederick has his chest pain that radiated to his j aw and I am sure the atrial fibrillation with a rapid ventricular response exacerbated his symptoms f rom a coronary standpoint. Certainly, a left heart catheterization would be reasonable to do down [facility] [address]. His other problems including diabetes, depression, dementia, dyslipidemia, and benign prosta tic hypertrophy seem to be stable at the present regimen. He also has a history of gastroesophageal reflux disease for which he takes Prilosec. We will see what the echo shows and he could probably go home once it is okay with admitting physician. VIANEY/MAMADOU Voice ID: [id number] Report ID: [id number]
== END 2018-03-05 14:18 | disposition home or self-care (01) ==
LOC: ER 21:20 → ERHOLD 22:41 → 4TH 03-05 01:01
PROVIDERS: ADMIT Hospitalist; ATTEND Hospitalist
DX: R07.9 Chest pain, unspecified (principal); I25.10 Atherosclerotic heart disease of native coronary artery without angina pectoris; I10 Essential (primary) hypertension; F32.9 Major depressive disorder, single episode, unspecified; G30.9 Alzheimer's disease, unspecified; F02.80 Dementia in other diseases classified elsewhere, unspecified severity, without behavioral disturbance, psychotic disturbance, mood disturbance, and anxiety; I48.0 Paroxysmal atrial fibrillation; E11.9 Type 2 diabetes mellitus without complications; Z87.891 Personal history of nicotine dependence; Z95.5 Presence of coronary angioplasty implant and graft; Z95.1 Presence of aortocoronary bypass graft; Z79.82 Long term (current) use of aspirin; Z79.01 Long term (current) use of anticoagulants
CPT/HCPCS: 36415; 71045; 80048; 80076; 82550; 82553; 83690; 83735; 83880; 84443; 84484 ×3; 85025; 85610; 85730; 93005 ×3; 93306; 96361; 96372; 96374; 96375; 99285; G0378 ×2; J1160; J1650; J7030